=== PATIENT | male | born 1985 | race American Indian/Alaskan Native ===

== ENCOUNTER 2019-05-06 01:18 | Emergency (ER) | payer SELFPAY ==
[2019-05-06] MEDS ORDERED: IBUPROFEN 800 MG TAB PO ONE (01:30)
[2019-05-06] MEDS ORDERED: HYDROcodone/ACETAMINOPHEN 5-325 MG TAB PO ONE (01:30)
[2019-05-06 01:33] VITALS: BP 139/94
--- NOTE | 2019-05-06 01:33 | Emergency Department Report ---
Chief Complaint: Dental/Oral Stated Complaint: MOUTH PAIN Time Seen by Provider: 05/06/19 01:27 - HPI History of Present Illness: 33 y/o M p/w a cc of dental pain. The pt states he's had pain from his right back, lower tooth x 2-3 weeks. Pt states his tooth has been breaking intermittently but he denies any recent trauma. Pt denies fever - Exam Vital Signs: 98.7, 139/94, 73, 18 98% r/a MSE screening note: Focused history and physical exam performed. Due to findings the following was ordered: GEN: WD WN M sitting in chair in mild discomfort HEENT: tooth #32 appears broken and eroded. No gingival erythema present. PULM: no resp distress ED Medical Decision Making - Differential Diagnosis dental pain ED Disposition for MSE Clinical Impression: Pain, dental Disposition: TO HOME OR SELFCARE Is pt being admited?: No Does the pt Need Aspirin: No Condition: Stable Instructions: Dental Caries (ED), Toothache (ED) Prescriptions: Amoxicillin [Amoxicillin TAB] 875 mg PO BID #14 tablet Ibuprofen [Motrin 800 MG tab] 800 mg PO Q8HR PRN #20 tablet PRN Reason: Pain, Moderate (4-6) HYDROcodone/APAP 5-325 [[place] 5/325] 1 - 2 each PO Q6HR PRN #14 tablet PRN Reason: Pain Referrals: [facility] [Outside] - [place]EL[place] Time of Disposition: 01:33
[2019-05-06] MEDS ORDERED: IBUPROFEN 800 MG TAB ONE (01:34)
== END 2019-05-06 13:27 | disposition home or self-care (01) ==
LOC: ED 01:18
DX: K08.89 Other specified disorders of teeth and supporting structures (principal)
CPT/HCPCS: 99282

== ENCOUNTER 2019-07-07 02:04 | Emergency (ER) | payer SELFPAY ==
[2019-07-07 02:15] VITALS: BP 119/79
[2019-07-07] MEDS ORDERED: HYDROcodone/ACETAMINOPHEN 7.5-325MG TAB PO ONE (03:59)
[2019-07-07] MEDS ORDERED: ONDANSETRON 4 MG ODT TAB PO ONE (03:59)
[2019-07-07] MEDS ORDERED: AMOXICILLIN/K CLAV 875/125MG TAB PO ONE (03:59)
--- NOTE | 2019-07-07 04:04 | Emergency Department Report ---
ED General Adult HPI - General Chief complaint: Dental/Oral Stated complaint: MOUTH/NERVE DAMAGE/PAIN Source: patient Mode of arrival: Ambulatory Limitations: No Limitations - History of Present Illness Initial comments: Patient is a 34-year-old -[place] male with history of chronic dental caries and dental abscesses who presented to the ED with complaint of acute exacerbation of his chronic toothaches characterized by severe right mandibular premolar and molar gingival pain and swelling, premolar and molar toothaches for the last 1 week, worse in the last 2 days. Patient states that he was previously treated for the same about 3 months ago by a dentist who advised that he needed dental surgery after being treated with antibiotics. Patient states that he did not follow-up with the dentist because of the cost of the procedure. Patient denies dizziness, syncope, fever, chills, cough, sore throat, change in vision, headache, chest pain, shortness of breath, neck pain or tongue swelling and dysphagia. MD Complaint: right mandibular premolar and molar toothache; gum pain -: Sudden, week(s) (1) Location: mouth Radiation: non-radiation Severity scale (0 -10): 9 Quality: aching, sharp Consistency: constant Improves with: none Worsens with: none Associated Symptoms: denies other symptoms. denies: confusion, chest pain, cough, diaphoresis, fever/chills, loss of appetite, malaise, nausea/vomiting, rash, shortness of breath, syncope, weakness, other Treatments Prior to Arrival: none - Related Data Previous Rx's Medication Instructions Recorded Last Taken Type Amoxicillin [Amoxicillin TAB] 875 mg PO BID #14 tablet 05/06/19 Unknown Rx HYDROcodone/APAP 5-325 [[place] 1 - 2 each PO Q6HR PRN #14 tablet 05/06/19 Unknown Rx 5/325] Ibuprofen [Motrin 800 MG tab] 800 mg PO Q8HR PRN #20 tablet 05/06/19 Unknown Rx Acetaminophen/Codeine [Tylenol 1 tab PO Q6H PRN #12 tab 07/07/19 Unknown Rx /Codeine # 3 tab] Clindamycin [Clindamycin CAP] 300 mg PO Q8HR #60 capsule 07/07/19 Unknown Rx Ketorolac [Toradol] 10 mg PO Q8H PRN #20 tablet 07/07/19 Unknown Rx Allergies Allergy/AdvReac Type Severity Reaction Status Date / Time No Known Allergies Allergy Unverified 05/06/19 01:33 ED Review of Systems ROS: Stated complaint: MOUTH/NERVE DAMAGE/PAIN Other details as noted in HPI Constitutional: denies: chills, fever Eyes: denies: eye pain, eye discharge, vision change ENT: dental pain (right mandibular premolar and molar toothaches with swollen gums). denies: ear pain, throat pain Respiratory: denies: cough, shortness of breath, wheezing Cardiovascular: denies: chest pain, palpitations Endocrine: no symptoms reported Gastrointestinal: denies: abdominal pain, nausea, diarrhea Genitourinary: denies: urgency, dysuria Musculoskeletal: denies: back pain, joint swelling, arthralgia Skin: denies: rash, lesions Neurological: denies: headache, weakness, paresthesias Psychiatric: denies: anxiety, depression Hematological/Lymphatic: denies: easy bleeding, easy bruising ED Past Medical Hx - Past Medical History Previous Medical History?: No - Surgical History Past Surgical History?: No - Social History Smoking Status: Current Every Day Smoker Substance Use Type: None - Medications Home Medications: Home Medications Medication Instructions Recorded Confirmed Last Taken Type Amoxicillin [Amoxicillin TAB] 875 mg PO BID #14 tablet 05/06/19 Unknown Rx HYDROcodone/APAP 5-325 [[place] 1 - 2 each PO Q6HR PRN #14 tablet 05/06/19 Unknown Rx 5/325] Ibuprofen [Motrin 800 MG tab] 800 mg PO Q8HR PRN #20 tablet 05/06/19 Unknown Rx Acetaminophen/Codeine [Tylenol 1 tab PO Q6H PRN #12 tab 07/07/19 Unknown Rx /Codeine # 3 tab] Clindamycin [Clindamycin CAP] 300 mg PO Q8HR #60 capsule 07/07/19 Unknown Rx Ketorolac [Toradol] 10 mg PO Q8H PRN #20 tablet 07/07/19 Unknown Rx ED Physical Exam - General Limitations: No Limitations General appearance: alert, in no apparent distress - Head Head exam: Present: atraumatic, normocephalic, normal inspection - Eye Eye exam: Present: normal appearance, PERRL, EOMI Pupils: Present: normal accommodation - ENT ENT exam: Present: mucous membranes moist, TM's normal bilaterally, normal external ear exam, other (Swelling, severely tender right mandibular gingiva with diffuse dental caries; severely tender right mandibular premolar and molar teeth tenderness) - Neck Neck exam: Present: normal inspection, full ROM. Absent: tenderness, lymphadenopathy - Respiratory Respiratory exam: Present: normal lung sounds bilaterally. Absent: respiratory distress, wheezes, rales, rhonchi, chest wall tenderness, decreased breath sounds - Cardiovascular Cardiovascular Exam: Present: regular rate, normal rhythm, normal heart sounds. Absent: systolic murmur, diastolic murmur, rubs, gallop - GI/Abdominal GI/Abdominal exam: Present: soft, normal bowel sounds. Absent: tenderness, guarding, hyperactive bowel sounds, hypoactive bowel sounds - Extremities Exam Extremities exam: Present: normal inspection, full ROM, normal capillary refill - Back Exam Back exam: Present: normal inspection, full ROM. Absent: tenderness, muscle spasm - Neurological Exam Neurological exam: Present: alert, oriented X3, CN II-XII intact, normal gait, reflexes normal - Psychiatric Psychiatric exam: Present: normal affect, normal mood - Skin Skin exam: Present: warm, dry, intact, normal color. Absent: rash ED Course Vital Signs 07/07/19 02:15 Temperature 98.2 F Pulse Rate 81 Respiratory 20 Rate Blood Pressure 119/79 O2 Sat by Pulse 96 Oximetry ED Medical Decision Making - Medical Decision Making This is a 33-year-old male with a history of chronic recurrent dental caries and dental abscesses who presented to the ED with complaint of acute onset persistent severely painful swelling right mandibular premolar and molar toothaches with swollen gums. In the ED, patient is alert and oriented x3 and is not in distress. Patient was treated for pain in the ED and also given initial oral antibiotics. Patient discharged home and advised to follow-up with his dentist in 7 to 10 days for reevaluation or return to the ED immediately if symptoms get worse. - Differential Diagnosis Dental abscess; Gingivitis; Dental caries; Critical care attestation.: If time is entered above; I have spent that time in minutes in the direct care of this critically ill patient, excluding procedure time. ED Disposition Clinical Impression: Dental abscess, Dental caries, Acute gingivitis Disposition: TO HOME OR SELFCARE Is pt being admited?: No Does the pt Need Aspirin: No Condition: Stable Instructions: Dental Caries (ED), Dental Abscess (ED), Gingivitis (ED) Additional Instructions: Take medication with food, drink plenty of fluids and follow-up with your primary care physician or dentist in 7 to 10 days for reevaluation. Return to the ED immediately if symptoms get worse. Prescriptions: Clindamycin [Clindamycin CAP] 300 mg PO Q8HR #60 capsule Ketorolac [Toradol] 10 mg PO Q8H PRN #20 tablet PRN Reason: Pain Acetaminophen/Codeine [Tylenol /Codeine # 3 tab] 1 tab PO Q6H PRN #12 tab PRN Reason: Pain , Severe (7-10) Referrals: [facility] [Outside] - 7-10 days Time of Disposition: 04:05 Print Language: TAJIK
== END 2019-07-07 04:20 | disposition home or self-care (01) ==
LOC: ED 02:04
DX: K04.7 Periapical abscess without sinus (principal); K02.9 Dental caries, unspecified; K05.00 Acute gingivitis, plaque induced; F17.200 Nicotine dependence, unspecified, uncomplicated; Z79.1 Long term (current) use of non-steroidal anti-inflammatories (NSAID); Z79.2 Long term (current) use of antibiotics
CPT/HCPCS: 99282; Q0162

== ENCOUNTER 2019-11-26 03:00 | Emergency (ER) | payer SELFPAY ==
[2019-11-26 03:19] VITALS: BP 130/84
--- NOTE | 2019-11-26 04:11 | XRay Report ---
RIGHT SHOULDER 3 VIEWS INDICATION / CLINICAL INFORMATION: right shoulder pain COMPARISON: None available. FINDINGS: BONES / JOINT(S): No acute fracture or subluxation. No significant arthritis. SOFT TISSUES: No significant abnormality. ADDITIONAL FINDINGS: None. Signer Name: Yaniv Harris MD Signed: 11/26/2019 4:07 AM Workstation Name: [id number]
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
[2019-11-26] MEDS ORDERED: HYDROcodone/ACETAMINOPHEN 5-325 MG TAB PO ONE (04:19)
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
[2019-11-26] MEDS ORDERED: IBUPROFEN 800 MG TAB PO ONE (05:43)
== END 2019-11-26 06:00 | disposition home or self-care (01) ==
LOC: ED 03:00
DX: S43.491A Other sprain of right shoulder joint, initial encounter (principal); S39.012A Strain of muscle, fascia and tendon of lower back, initial encounter; S09.90XA Unspecified injury of head, initial encounter; F17.200 Nicotine dependence, unspecified, uncomplicated; Z79.899 Other long term (current) drug therapy; Y04.8XXA Assault by other bodily force, initial encounter; Y93.89 Activity, other specified; Y92.89 Other specified places as the place of occurrence of the external cause; Y99.8 Other external cause status
CPT/HCPCS: 70450; 72072